=== PATIENT | female | born 1960 | race Caucasian/White ===

== ENCOUNTER 2019-09-18 18:07 | Emergency (ER) | payer BC ==
--- NOTE | 2019-09-18 18:15 | NUR ---
Called pt x 1 , no answer
--- NOTE | 2019-09-18 18:22 | NUR ---
Called pt x 2 , no answer
--- NOTE | 2019-09-18 18:30 | NUR ---
Called pt x 3 ,no answer
--- NOTE | 2019-09-18 18:30 | NUR ---
Shelly price in [facility] - 09/18/19 at 1833 by [email or web address] Called pt x 1 , no answer
== END 2019-09-18 18:30 | disposition left against medical advice (07) ==
LOC: SED 18:07
DX: R05 Cough (principal); Z53.21 Procedure and treatment not carried out due to patient leaving prior to being seen by health care provider

== ENCOUNTER 2019-10-09 01:45 | Emergency (ER) | payer BC ==
[~2019-10-09] VITALS: Ht 165.1 cm; Wt 62.6 kg
[2019-10-09 01:50] VITALS: BP_SYST 168
--- NOTE | 2019-10-09 01:50 | NUR ---
Patient triaged and placed in waiting room. VSS and patient appears in no acute distress at this time. Accompanied by fam member, awaiting available bed, and MD notified of need for MSE.
--- NOTE | 2019-10-09 02:52 | NUR ---
Patient to ER bed 8 to gown for evaluation. Side rails up. Report given to Abby MARIO.
--- NOTE | 2019-10-09 03:12 | NUR ---
Pt AAOx4 ambulated into ED c/o worsening congestion/chest like pressure since 1 am. Denies n/v/d. Pt reports she was recently diagnosed with URI and completed Z-pack last week. Skin pink dry and warm, breathing even and unlabored. No other injuries/complaints per pt/noted. Will continue to monitor.
--- NOTE | 2019-10-09 03:18 | NUR ---
Lab at bedside for blood draw
[2019-10-09 03:42] LABS: BASOPHILS # (AUTO) 0.1 K/uL (0.0-0.2); EOSINOPHILS # (AUTO) 0.3 K/uL (0.0-0.4); EOSINOPHILS % (AUTO) 3.6 % (0.0-4.0); HEMATOCRIT 41.7 % (36-48); HEMOGLOBIN 14.4 g/dL (12.0-16.0); LYMPHOCYTES # (AUTO) 2.1 K/uL (1.0-5.5); LYMPHOCYTES % (AUTO) 25.6 % (20.5-51.5); MEAN CORPUSCULAR HEMOGLOBIN 30 pg (27-31); MEAN CORPUSCULAR HGB CONC 35 % (32-36); MEAN CORPUSCULAR VOLUME 86 fL (79.0-98.0); MONOCYTES # (AUTO) 0.4 K/uL (0.0-1.0); MONOCYTES % (AUTO) 5.1 % (1.7-9.3); NEUTROPHILS # (AUTO) 5.4 K/uL (1.8-7.7); NEUTROPHILS % (AUTO) 64.7 % (40.0-70.0); PLATELET COUNT (AUTO) 217 K/uL (130-430); RED BLOOD CELL COUNT(AUTO) 4.84 MIL/uL (4.2-6.2); RED CELL DISTRIBUTION WIDTH 15.9 % (9.0-15.0); WHITE BLOOD COUNT (AUTO) 8.3 K/uL (4.8-10.8)
[2019-10-09 03:54] LABS: CALCIUM 9.5 mg/dL (8.4-11.0); CREATININE 0.79 mg/dL (0.55-1.30); POTASSIUM 3.8 mmol/L (3.5-5.1)
--- NOTE | 2019-10-09 03:58 | NUR ---
Report given to Alex MARIO
[2019-10-09 04:12] LABS: TOTAL BILIRUBIN 0.5 mg/dL (0.0-1.0)
--- NOTE | 2019-10-09 05:18 | NUR ---
Patient given written and verbal discharge instructions and verbalizes understanding. ER MD discussed with patient the results and treatment provided. Patient in stable condition. ID arm band removed. Rx of promethazine/codeine, naprosyn given. Patient educated on pain management and to follow up with PMD. Pain Scale 0/10. Opportunity for questions provided and answered. Medication side effect fact sheet provided.
[2019-10-09 05:19] VITALS: BP_SYST 149
== END 2019-10-09 05:19 | disposition home or self-care (01) ==
LOC: SED 01:45
DX: J20.9 Acute bronchitis, unspecified (principal); M94.0 Chondrocostal junction syndrome [Tietze]; F17.290 Nicotine dependence, other tobacco product, uncomplicated
CPT/HCPCS: 36415; 71045; 80053; 82550-TC; 83880; 84484; 85025; 93005; 99285

== ENCOUNTER 2022-08-27 20:42 | Emergency (ER) | payer BC, MEDICAID ==
[~2022-08-27] VITALS: Ht 165.1 cm; Wt 60.8 kg
[2022-08-27 22:25] VITALS: BP_SYST 171
--- NOTE | 2022-08-27 22:30 | NUR ---
Patient triaged and placed in waiting room. VS checked and patient appears in no acute distress at this time. Accompanied by self , awaiting available bed, and MD notified of need for MSE.
--- NOTE | 2022-08-28 02:02 | NUR ---
Late entry: patient resting in bed, informed of plan of care at this time. placed on monitor, no s/s of any distress noted, awaiting md exam. Patient ambulated to the bathroom and back to bed, urine collected at this time.
[2022-08-28] MEDS ORDERED: NACL 0.9% 1,000 ML IV ONE (02:15)
[2022-08-28 02:47] LABS: BASOPHILS # (AUTO) 0.1 K/uL (0.0-0.2); BASOPHILS % (AUTO) 1.1 % (0.0-2.0); EOSINOPHILS # (AUTO) 0.3 K/uL (0.0-0.4); EOSINOPHILS % (AUTO) 4.5 % (0.0-4.0); HEMATOCRIT 39.5 % (36-48); LYMPHOCYTES # (AUTO) 2.6 K/uL (1.0-5.5); LYMPHOCYTES % (AUTO) 34.7 % (20.5-51.5); MEAN CORPUSCULAR HEMOGLOBIN 29 pg (27-31); MEAN CORPUSCULAR HGB CONC 35 % (32-36); MEAN CORPUSCULAR VOLUME 82 fL (79.0-98.0); MONOCYTES # (AUTO) 0.4 K/uL (0.0-1.0); NEUTROPHILS # (AUTO) 4.1 K/uL (1.8-7.7); NEUTROPHILS % (AUTO) 54.7 % (40.0-70.0); PLATELET COUNT (AUTO) 183 K/uL (130-430); RED CELL DISTRIBUTION WIDTH 15.2 % (9.0-15.0); WHITE BLOOD COUNT (AUTO) 7.5 K/uL (4.8-10.8)
[2022-08-28 02:47] LABS: BILIRUBIN,URINE NEGATIVE (NEGATIVE); BLOOD, URINE NEGATIVE (NEGATIVE); CLARITY/URINE CLEAR (CLEAR); COLOR,URINE YELLOW (YELLOW); GLUCOSE,URINE NEGATIVE (NEGATIVE); KETONES,URINE NEGATIVE (NEGATIVE); LEUKOCYTE ESTERASE ,URINE 2+ (NEGATIVE); NITRITE, URINE NEGATIVE (NEGATIVE); PROTEIN URINE NEGATIVE (NEGATIVE); UROBILINOGEN,URINE 0.2 (0.2-1.0)
[2022-08-28 02:51] LABS: CALCIUM 9.2 mg/dL (8.4-11.0); CREATININE 0.53 mg/dL (0.55-1.30)
[2022-08-28 02:56] LABS: ALBUMIN 4.1 g/dL (3.4-4.8); TOTAL BILIRUBIN 0.7 mg/dL (0.0-1.0)
[2022-08-28 03:05] LABS: RBC,URINE 0-3 /HPF (0-3)
[2022-08-28 03:06] LABS: BACTERIA,URINE MANY /HPF (None Seen); MUCUS,URINE None Seen /LPF (None Seen)
--- NOTE | 2022-08-28 03:13 | NUR ---
patient resting, awaiting MD exam, IVF infusing well.
--- NOTE | 2022-08-28 03:21 | NUR ---
At bedside with MD for exam.
[2022-08-28] MEDS ORDERED: cefTRIAXone 2 GM VIAL ONE (03:28)
--- NOTE | 2022-08-28 03:43 | NUR ---
Ambulated back to radiology department.
[2022-08-28] MEDS ORDERED: PROP60CA2 PO ×2 (05:00)
[2022-08-28] MEDS ORDERED: ONDANSETRON HCL 4 MG/2 ML VIAL IVP ONE (05:45)
[2022-08-28] MEDS ORDERED: MORPHINE 4 MG INJ. 4 MG/ML VIAL IVP ONE (05:45)
[2022-08-28 05:56] VITALS: BP_SYST 132
--- NOTE | 2022-08-28 05:59 | NUR ---
Medicated as per order for c/o pain, awaiting radiology results.
--- NOTE | 2022-08-28 07:25 | NUR ---
ASSUMED PATIENT CARE , AAOX4 SPEECH CLEAR AND COHERENT, MOVE ALL EXTREMITIES, MEDICATED EARLIER FOR PAIN AND INFECTION, PATIENT C/O RECTAL PAIN 09/16, AWAITING FOR DISPOSITION.
--- NOTE | 2022-08-28 08:01 | NUR ---
EDP AT BEDSIDE FOR REASSESSMENT AND DISPOSITION.
[2022-08-28] MEDS ORDERED: IBUP-1969 PO (08:04)
[2022-08-28] MEDS ORDERED: CIPR500T5 PO (08:04)
--- NOTE | 2022-08-28 08:12 | NUR ---
Patient given written and verbal discharge instructions and verbalizes understanding. ER MD discussed with patient the results and treatment provided. Patient in stable condition. ID arm band removed. IV catheter removed intact and dressing applied, no active bleeding. Rx of CIPRO/IBUPROFEN given. Patient educated on pain management and to follow up with PMD. Pain Scale 2. Opportunity for questions provided and answered. Medication side effect fact sheet provided.
--- NOTE | 2022-08-28 08:15 | NUR ---
H/L REMOVED SKIN INTACT. PATIENT LEFT WITH ALL HER BELONGINGS
== END 2022-08-28 08:12 | disposition home or self-care (01) ==
LOC: SED 20:42
DX: N39.0 Urinary tract infection, site not specified (principal); K62.89 Other specified diseases of anus and rectum; R19.7 Diarrhea, unspecified; Z79.899 Other long term (current) drug therapy
CPT/HCPCS: 99285; 80053; 81000; 85025; 87086; 36415; 82272; 74176; 96365; 96375; 96361; 74021; 76376; J0696; J2405; J2270; J7030